=== PATIENT | male | born 1975 | race Caucasian/White ===

== ENCOUNTER 2023-02-14 16:00 | Emergency (ER) | payer OTHER ==
[~2023-02-14] VITALS: Ht 177.8 cm; Wt 81.6 kg
[2023-02-14] MEDS ORDERED: AMBIEN10 MG PO (16:19)
== END 2023-02-14 18:23 | disposition home or self-care (01) ==
LOC: ER 16:01
DX: H60.8X2 Other otitis externa, left ear (principal); Z91.018 Allergy to other foods

== ENCOUNTER 2023-11-03 19:57 | Emergency (ER) | payer OTHER ==
[~2023-11-03] VITALS: Ht 177.8 cm; Wt 83.9 kg
[~2023-11-03 19:57] MED LIST: AMBIEN10 MG PO
[2023-11-03] MEDS ORDERED: MORPHINE SULFATE 4 MG/ML VIAL IV ONE (22:00)
[2023-11-03] MEDS ORDERED: PROPOFOL 10 MG/1 ML VIAL 50ML IV ONE (22:00)
[2023-11-03] MEDS ORDERED: ONDANSETRON HCL 2 MG/ML VIAL IM ONE (22:00)
[2023-11-03] MEDS ORDERED: PROPOFOL 10,000 MCG/ML VIAL ONE (22:20)
[2023-11-03] MEDS ORDERED: FLUMAZENIL 0.5 MG/5 ML ML IV ONE (22:26)
[2023-11-03] MEDS ORDERED: NALOXONE HCL 0.4 MG/ML AMPUL ONE (22:30)
[2023-11-04] MEDS ORDERED: KETO10TA2 PO (02:52)
== END 2023-11-04 03:24 ==
LOC: ER 19:57
DX: S43.085A Other dislocation of left shoulder joint, initial encounter (principal); T14.8XXA Other injury of unspecified body region, initial encounter; W19.XXXA Unspecified fall, initial encounter; Y93.89 Activity, other specified; Y92.89 Other specified places as the place of occurrence of the external cause; Y99.9 Unspecified external cause status; Z91.018 Allergy to other foods

== ENCOUNTER 2023-11-19 21:31 | Emergency (ER) | payer BC, OTHER ==
[~2023-11-19] VITALS: Ht 182.9 cm; Wt 77.1 kg
[~2023-11-19 21:31] MED LIST changes: +KETO10TA2 PO
[2023-11-20] MEDS ORDERED: MORPHINE SULFATE 4 MG/ML VIAL IV ONE (00:15)
[2023-11-20] MEDS ORDERED: KETOROLAC TROMETHAMINE 30 MG VIAL IV ONE (00:15)
[2023-11-20] MEDS ORDERED: DEXAMETHASONE 4 MG TABLET PO ONE (00:15)
[2023-11-20 00:54] LABS: HEMATOCRIT 40.9 % (39.0-48.0); MEAN CELL VOLUME 70.4 fL (80.0-100.00); MEAN CORPUSCULAR HEMOGLOBIN 22.4 pg (27.00-32.0); MEAN CORPUSCULAR HGB CONC 31.8 g/dl (32.0-36.0); PLATELET COUNT 357 K/uL (150-450); RED BLOOD COUNT 5.81 M/uL (4.00-6.00); RED CELL DISTRIBUTION WIDTH 15.8 % (11.5-14.5)
[2023-11-20 01:03] LABS: INR 1.05; PARTIAL THROMBOPLASTIN TIME 32.7 SECONDS (22.0-34.0); PROTHROMBIN TIME 11.4 SECONDS (9.0-11.5)
[2023-11-20 01:05] LABS: CALCIUM 9.8 mg/dL (8.5-10.1); CREATININE SERUM 1.1 mg/dL (0.70-1.30); GFR 71.45; POTASSIUM 3.48 mEq/L (3.5-5.1)
[2023-11-20] MEDS ORDERED: DEXAMETHASONE SODIUM PHOSPHATE 4 MG/ML VIAL IV ONE (02:30)
[2023-11-20] MEDS ORDERED: MORPHINE SULFATE 4 MG/ML VIAL IV STA (06:26)
[2023-11-20] MEDS ORDERED: KETOROLAC TROMETHAMINE 30 MG VIAL IV STA (06:26)
[2023-11-20] MEDS ORDERED: KETOROLAC TROMETHAMINE 60 MG VIAL IM ONE (10:00)
== END 2023-11-20 10:49 | disposition designated cancer center or children's hospital (05) ==
LOC: ER 21:31
PROVIDERS: Emergency Medicine
DX: S42.92XA Fracture of left shoulder girdle, part unspecified, initial encounter for closed fracture (principal); X58.XXXA Exposure to other specified factors, initial encounter; Y93.89 Activity, other specified; Y92.89 Other specified places as the place of occurrence of the external cause; Y99.9 Unspecified external cause status; Z91.018 Allergy to other foods

== ENCOUNTER 2023-12-01 14:11 | Outpatient (CLI) | payer OTHER | END 2023-12-01 14:29 | disposition home or self-care (01) | LOC: MRI 14:11 | DX: S43.015A Anterior dislocation of left humerus, initial encounter (principal); M25.312 Other instability, left shoulder | CPT/HCPCS: 73218 ==

== ENCOUNTER 2024-04-25 17:30 | Emergency (ER) | payer BC, OTHER ==
[~2024-04-25] VITALS: Ht 177.8 cm; Wt 72.6 kg
[2024-04-25] MEDS ORDERED: LOPRESSOR25 MG PO (19:33)
== END 2024-04-25 20:52 | disposition home or self-care (01) ==
LOC: ER 17:33
DX: R00.2 Palpitations (principal); Z91.018 Allergy to other foods

== ENCOUNTER 2024-10-24 04:14 | Emergency (ER) | payer BC, OTHER ==
[~2024-10-24] VITALS: Ht 177.8 cm; Wt 77.1 kg
[~2024-10-24 04:14] MED LIST changes: +LOPRESSOR25 MG PO
[2024-10-24] MEDS ORDERED: [UNRECOGNIZED DRUG - OTHER] (04:40)
[2024-10-24] MEDS ORDERED: LEVALBUTEROL HCL 0.63 MG/3 ML SOLUTION IH SCH (05:00)
[2024-10-24] MEDS ORDERED: METHYLPREDNISOLONE SOD SUCC 125 MG VIAL IV STA (05:00)
[2024-10-24] MEDS ORDERED: GUAIFENESIN 200 MG/10 ML BLIST.PACK PO STA (05:05)
[2024-10-24 06:00] LABS: ALT/SGPT 23.0 U/L (12-78); AST/SGOT 16.0 U/L (15-37); BILIRUBIN TOTAL 1.26 mg/dL (0.3-1.2); BUN CREA RATIO 9.0 (7.0-25.0); CREATININE SERUM 1.31 mg/dL (0.70-1.30); GFR 58.4; GLOBULINA 3.6 G/DL (2.4-3.5); GLUCOSE FASTING 96.0 mg/dL (65-100); OSMOLALITY SERUM 285.0 MOSM/KG (275-295)
[2024-10-24 06:12] LABS: BASO % 0.3 % (0.1-1.2); EOS # 0.18 (0.04-0.54); EOS % 2.6 % (0.7-7.0); LYMPH # 0.55 (1.18-3.74); LYMPH % 8.0 % (19.3-53.1); MEAN PLATELET VOLUME 10.40 fl (9.4-12.4); MONO # 0.41 (0.24-0.82); MONO % 6.0 % (4.7-12.5); NEUT # 5.71 (1.56-6.13); NEUT % 82.8 % (34.0-71.1); RED CELL DISTRIBUTION WIDTH 12.2 % (11.6-14.4)
[2024-10-24 06:40] LABS: COVID-19 AG NEGATIVE (NEGATIVE)
[2024-10-24] MEDS ORDERED: BUDESONIDE0.5 MG/2 M IH (07:39)
[2024-10-24] MEDS ORDERED: ALBUTEROL2.5 MG/3 M IH (07:39)
[2024-10-24] MEDS ORDERED: ZYNCOF 20-400120 ML PO (07:39)
== END 2024-10-24 07:55 | disposition home or self-care (01) ==
LOC: ER 04:22
PROVIDERS: General Practice
DX: J98.01 Acute bronchospasm (principal); J40 Bronchitis, not specified as acute or chronic; J00 Acute nasopharyngitis [common cold]; Z20.822 Contact with and (suspected) exposure to COVID-19; Z91.018 Allergy to other foods